=== PATIENT | male | born 1990 | race Caucasian/White ===

== ENCOUNTER 2020-07-26 11:42 | Outpatient (RCR) | payer OTHER, SELFPAY | END 2020-07-26 23:59 | disposition home or self-care (01) | LOC: EMPH 11:42 | PROVIDERS: Visit Provider Family Medicine Geriatric Medicine | DX: Z11.59 Encounter for screening for other viral diseases (principal) | CPT/HCPCS: 87635; U0003 ==

== ENCOUNTER 2020-09-08 06:02 | Outpatient (RCR) | payer OTHER, SELFPAY | END 2020-09-09 23:59 | LOC: EMPH 06:02 | PROVIDERS: Visit Provider Family Medicine Geriatric Medicine | DX: Z03.818 Encounter for observation for suspected exposure to other biological agents ruled out (principal) | CPT/HCPCS: 87426 ==

== ENCOUNTER 2020-09-08 06:02 | Outpatient (RCR) | payer OTHER, SELFPAY | END 2020-09-11 23:59 | LOC: EMPH 06:02 | PROVIDERS: Referring Provider Family Medicine Geriatric Medicine; Visit Provider Family Medicine Geriatric Medicine | DX: Z03.818 Encounter for observation for suspected exposure to other biological agents ruled out (principal) ==

== ENCOUNTER 2020-10-04 10:51 | Outpatient (RCR) | payer OTHER, SELFPAY | END 2020-10-09 23:59 | LOC: EMPH 10:51 | PROVIDERS: Referring Provider Family Medicine Geriatric Medicine; Visit Provider Family Medicine Geriatric Medicine | DX: Z03.818 Encounter for observation for suspected exposure to other biological agents ruled out (principal) | CPT/HCPCS: 87426 ==

== ENCOUNTER 2020-10-19 08:34 | Outpatient (RCR) | payer OTHER, SELFPAY | END 2020-11-09 23:59 | LOC: EMPH 08:34 | PROVIDERS: Referring Provider Family Medicine Geriatric Medicine; Visit Provider Family Medicine Geriatric Medicine | DX: Z03.818 Encounter for observation for suspected exposure to other biological agents ruled out (principal) | CPT/HCPCS: 87426 ==

== ENCOUNTER 2020-12-08 08:46 | Outpatient (RCR) | payer OTHER, SELFPAY | END 2020-12-10 23:59 | LOC: EMPH 08:46 | PROVIDERS: Referring Provider Family Medicine Geriatric Medicine; Visit Provider Family Medicine Geriatric Medicine | DX: Z03.818 Encounter for observation for suspected exposure to other biological agents ruled out (principal) | CPT/HCPCS: 87426 ==

== ENCOUNTER 2020-12-27 12:56 | Outpatient (RCR) | payer OTHER, SELFPAY | END 2021-01-07 23:59 | LOC: EMPH 12:56 | PROVIDERS: Referring Provider Family Medicine Geriatric Medicine; Visit Provider Family Medicine Geriatric Medicine | DX: Z03.818 Encounter for observation for suspected exposure to other biological agents ruled out (principal) | CPT/HCPCS: 87426 ==

== ENCOUNTER 2021-05-02 11:34 | Outpatient (RCR) | payer OTHER, SELFPAY | END 2021-05-09 23:59 | LOC: EMPH 11:34 | PROVIDERS: Referring Provider Family Medicine Geriatric Medicine; Visit Provider Family Medicine Geriatric Medicine | DX: Z03.818 Encounter for observation for suspected exposure to other biological agents ruled out (principal) | CPT/HCPCS: 87426 ==

== ENCOUNTER 2021-07-23 07:38 | Outpatient (RCR) | payer OTHER, SELFPAY | END 2021-08-09 23:59 | LOC: EMPH 07:38 | PROVIDERS: Referring Provider Family Medicine Geriatric Medicine; Visit Provider Family Medicine Geriatric Medicine | DX: Z03.818 Encounter for observation for suspected exposure to other biological agents ruled out (principal) | CPT/HCPCS: 87426 ==